=== PATIENT | female | born 1965 | race Native Hawaiian/Other Pacific Islander ===

== ENCOUNTER 2017-04-22 08:49 | Outpatient (CLI) | payer OTHER ==
[~2017-04-22 08:49] MED LIST: ADIPEX PO; ALPR0.2566 PO; BONTRIL OR; CELEXA10 MG PO; LEVO0.0218 PO
== END 2017-04-22 18:00 | disposition home or self-care (01) ==
LOC: MAMMO 08:49
DX: Z12.31 Encounter for screening mammogram for malignant neoplasm of breast (principal); Z13.820 Encounter for screening for osteoporosis

== ENCOUNTER 2018-09-07 14:00 | Outpatient (CLI) | payer OTHER | END 2018-09-07 20:20 | disposition home or self-care (01) | LOC: MAMMO 14:00 | DX: Z12.31 Encounter for screening mammogram for malignant neoplasm of breast (principal) ==

== ENCOUNTER 2020-01-09 10:47 | Outpatient (CLI) | payer BC | END 2020-01-09 19:56 | disposition home or self-care (01) | LOC: MAMMO 10:47 | PROVIDERS: ATTEND Nurse Practitioner Family | DX: Z12.31 Encounter for screening mammogram for malignant neoplasm of breast (principal) ==

== ENCOUNTER 2020-02-27 10:44 | Outpatient (CLI) | payer BC, OTHER | END 2020-02-27 23:59 | disposition home or self-care (01) | LOC: INF 10:44 | PROVIDERS: ATTEND Internal Medicine | DX: Z23 Encounter for immunization (principal) | CPT/HCPCS: 96372 ==

== ENCOUNTER 2020-03-26 10:09 | Outpatient (CLI) | payer BC, OTHER | END 2020-03-26 21:45 | disposition home or self-care (01) | LOC: INF 10:09 | PROVIDERS: ATTEND Internal Medicine | DX: Z23 Encounter for immunization (principal) | CPT/HCPCS: 96372 ==

== ENCOUNTER 2022-02-04 11:39 | Outpatient (CLI) | payer BC | END 2022-02-04 18:51 | disposition home or self-care (01) | LOC: MAMMO 11:39 | PROVIDERS: ATTEND Nurse Practitioner Family | DX: Z12.31 Encounter for screening mammogram for malignant neoplasm of breast (principal) ==

== ENCOUNTER 2022-05-26 12:08 | Day surgery (SDC) | payer BC | END 2022-05-26 15:50 | disposition home or self-care (01) | LOC: OR 12:08 | PROVIDERS: ATTEND Internal Medicine Gastroenterology | PROC: 0DJD8ZZ Inspection of Lower Intestinal Tract, Via Natural or Artificial Opening Endoscopic (ICD-10-PCS; principal; 2022-05-26) | DX: K57.30 Diverticulosis of large intestine without perforation or abscess without bleeding (principal); K64.8 Other hemorrhoids; Z86.010 Personal history of colon polyps; Z12.11 Encounter for screening for malignant neoplasm of colon | CPT/HCPCS: J2704; J7120 ==